=== PATIENT | female | born 1995 | race Caucasian/White ===

== ENCOUNTER 2018-03-11 06:57 | Outpatient (CLI) | payer BC ==
--- NOTE | 2018-03-11 07:52 | ULT ---
RIGHT UPPER QUADRANT ULTRASOUND: INDICATION: Elevated LFTs, epigastric abdominal pain, with nausea. FINDINGS: There are multiple small stones with sludge seen within the gallbladder, near the neck. Common bile duct measures 3.4 mm. No focal hepatic lesion is evident. The visualized pancreas is unremarkable. The right kidney measures 9.5 x 4.2 x 4.4 cm. No definite sonographic Funetes's sign is reported. IMPRESSION: Cholelithiasis with gallbladder sludge. No overt sonographic evidence of acute cholecystitis. POS: [facility]
== END 2018-03-11 06:58 | disposition home or self-care (01) ==
LOC: SCSULT 06:57
PROVIDERS: ATTEND Internal Medicine Gastroenterology
DX: R10.13 Epigastric pain (principal); R11.0 Nausea; R74.0 Nonspecific elevation of levels of transaminase and lactic acid dehydrogenase [LDH]; E10.9 Type 1 diabetes mellitus without complications; K80.20 Calculus of gallbladder without cholecystitis without obstruction; K82.8 Other specified diseases of gallbladder
CPT/HCPCS: 76705

== ENCOUNTER 2018-03-26 09:55 | Outpatient (CLI) | payer BC ==
[2018-03-26 11:15] LABS: #Lymphocytes 1.7 thou/uL (1.20-3.40); #Monocytes 0.4 thou/uL (0.11-0.59); #Neutrophils 2.3 thou/uL (1.40-6.50); %Basophils 0.9 % (0.0-1.0); %Eosinophils 0.2 % (0.0-10.0); %Lymphocytes 37.5 % (28.0-48.0); %Monocytes 8.9 % (0.0-4.0); %Neutrophils 52.5 % (31.0-61.0); Hemoglobin 12.6 g/dL (12.0-16.0); Mean Corpuscular HGB CONC 34.8 g/dL (32.0-36.0); Mean Corpuscular Hemoglobin 30.1 pg (25.0-35.0); Mean Corpuscular Volume 86.7 fl (77.0-87.0); Mean Platelet Volume 8.5 fL (7.4-10.4); Platelet Count 184 thou/uL (130-400); RBC Distribution Width 11.7 % (11.5-14.5); Red Blood Cell (RBC) Count 4.19 mill/uL (4.00-5.20); White Blood Cell (WBC) Count 4.5 thou/uL (4.8-10.8)
[2018-03-26 11:23] LABS: BHCG - Serum Negative (NEGATIVE); Pregs Control Background? CLEAR/WHITE (CLR/WHITE); Pregs Control Bar Appear? YES (CONTROL BAR)
[2018-03-26 11:36] LABS: ALT (SGPT) 20 U/L (8-55); AST (SGOT) 21 U/L (5-34); Alkaline Phosphatase 50 U/L (40-150); Anion Gap 9 mmol/L (10-20); BUN (Urea Nitrogen) 10 mg/dL (7.0-18.7); Bilirubin, Direct 0.2 mg/dL (0.1-0.3); Bilirubin, Total 0.5 mg/dL (0.2-1.2); Calc. Creatinine Clearance 0 mL/min (70-130); Calcium 9.3 mg/dL (7.8-10.44); Carbon Dioxide 25 mmol/L (22-29); Chloride 107 mmol/L (98-107); Estimated GFR-MDRD 81; Globulin 3.4 g/dL (2.4-3.5); Glucose 213 mg/dL (70-105); Potassium 4.4 mmol/L (3.5-5.1); Protein, Total 7.4 g/dL (6.0-8.3); Sodium 137 mmol/L (136-145)
== END 2018-03-26 09:56 | disposition home or self-care (01) ==
LOC: LABBT 09:55
PROVIDERS: ATTEND Surgery
DX: Z01.812 Encounter for preprocedural laboratory examination (principal); K80.20 Calculus of gallbladder without cholecystitis without obstruction
CPT/HCPCS: 80053; 80076; 84703; 85025

== ENCOUNTER 2018-03-27 09:06 | Day surgery (SDC) | payer BC ==
[2018-03-26 10:39] VITALS: BMI 22.5
[2018-03-27] MEDS ORDERED: cefOXitin 2 GM in Sodium Chloride 0.9% 100 ML IVPB SCH (10:15)
[2018-03-27] MEDS ORDERED: diphenhydrAMINE 50 MG/ML VIAL ONE (10:16)
[2018-03-27] MEDS ORDERED: Iothalamate Meglumine 60% 50 ML VIAL FS ONE (12:18)
[2018-03-27] MEDS ORDERED: Fentanyl 100 MCG/2 ML VIAL ONE ×2 (12:25→14:02)
[2018-03-27] MEDS ORDERED: HYDROmorphone 0.5 MG/0.5 ML SYRINGE ONE (12:25)
[2018-03-27] MEDS ORDERED: Metoclopramide HCl 10 MG/2 ML VIAL ONE ×2 (12:26→15:05)
[2018-03-27] MEDS ORDERED: Promethazine HCl 25 MG/ML VIAL ONE (14:03)
[2018-03-27] MEDS ORDERED: Glycopyrrolate 0.2 MG/ML 5 ML SYRINGE ONE (15:05)
[2018-03-27] MEDS ORDERED: Ketorolac Tromethamine 30 MG/ML VIAL ONE (15:05)
[2018-03-27] MEDS ORDERED: PROPOFOL 200 MG/20 ML VIAL ONE (15:05)
[2018-03-27] MEDS ORDERED: PHENYLEPHRINE-NS 100 MCG/ML 10 ML SYRINGE ONE (15:05)
[2018-03-27] MEDS ORDERED: Ondansetron HCl/PF 4 MG/2 ML Vial ONE (15:05)
[2018-03-27] MEDS ORDERED: HYDROcodone/Acetaminophen 5/325 mg Tablet ONE (15:23)
--- NOTE | 2018-03-27 15:59 | OP ---
DATE OF PROCEDURE: 03/27/2018 PREOPERATIVE DIAGNOSIS: Symptomatic cholelithiasis with liver function test elevation. SURGEON: Paul Bowens M.D. PROCEDURE PERFORMED: Laparoscopic cholecystectomy with cholangiogram. INDICATIONS: A 22-year-old female who has been having episodic right upper quadrant pain, radiating to the back, associated with nausea. Ultrasound showed cholelithiasis. FINDINGS: Small cystic duct, negative cholangiogram. PROCEDURE IN DETAIL: After informed consent was obtained, the patient was taken to the operating [facility] and given general endotracheal anesthesia. She was placed in the supine position. Her abdomen was prepped and draped in the usual fashion. Local anesthesia was not used as she has had a reaction to a small amount of local and starting her IV. A subumbilical incision was performed. Subcu divided sharply. The fascia grasped and two stay sutures placed on either side of midline. Midline incised. Digital palpation revealed no local adhesions. A blunt 10-12 mm trocar inserted. Pneumoperitoneum was created to a pressure of 15 mmHg. A 0-degree laparoscope was inserted under direct vision. Thr ee 5-mm ports were placed subcostally. The gallbladder grasped and advanced superiorly. The periton eum was lysed distally to dissect out the cystic duct, cystic artery and critical view. A clip was p laced at the base of the gallbladder on the cystic duct. An incision was made in the cystic duct. A n Arrow cholangiocatheter was attempted to be threaded. I could get it to thread. I change to a Tau t cholangiocatheter, which I was able to place within the cystic duct and clamped in place. Then, in traoperative cholangiogram was performed utilizing fluoroscopy. It showed free flow in the duodenum. No filling defects. The cystic duct was triply ligated and divided with Hemoclips. The artery was triply ligated with Hemoclips and divided. The gallbladder was removed from its fossa utilizing jose ctrocautery, removed from the abdomen through the umbilical port. Hemostasis assured. The gallbladd er was placed in an Endosac and removed from the abdomen in the Endosac through the umbilical port. Hemostasis was assured. Trocars and retractors removed. The fascia closed with interrupted 0 Vicryl suture and the skin closed with interrupted 4-0 Rapide. Dermabond applied. The patient tolerated t he procedure well and was transferred to recovery in good condition. Sponge and needle count verifie d correct x2.
--- NOTE | 2018-03-27 16:09 | RAD ---
SINGLE INTRAOPERATIVE RADIOGRAPH CHOLANGIOGRAM: HISTORY: Laparoscopic cholangiography. FINDINGS: Single intraoperative cholangiogram demonstrates catheterization and injection of the cystic duct. T here is free flow of contrast into the duodenum. No evidence of common bile duct stones or structure s seen. POS: [facility]
== END 2018-03-27 18:00 | disposition home or self-care (01) ==
LOC: SDC 09:06
PROVIDERS: ATTEND Surgery
PROC: 0FT44ZZ Resection of Gallbladder, Percutaneous Endoscopic Approach (ICD-10-PCS; principal; 2018-03-27)
PROC: BF101ZZ Fluoroscopy of Bile Ducts using Low Osmolar Contrast (ICD-10-PCS; principal; 2018-03-27)
DX: K81.1 Chronic cholecystitis (principal); J45.909 Unspecified asthma, uncomplicated; E10.9 Type 1 diabetes mellitus without complications; Z79.3 Long term (current) use of hormonal contraceptives; Z79.899 Other long term (current) drug therapy
CPT/HCPCS: 36416; 47532; 88304; 96374; J0131; J0694; J1170; J1200; J1885; J2405; J2550; J2704; J2765; J3010; J7050; Q9961